=== PATIENT | male | born 1975 | race Caucasian/White ===

== ENCOUNTER 2019-08-09 08:01 | Outpatient (CLI) | payer BC ==
--- NOTE | 2019-08-09 08:50 | CT ---
CT Brain WO Con: 08/09/2019 12:00 AM CLINICAL HISTORY: Headache. COMPARISON: None. FINDINGS: Hemorrhage: None. Ventricular system: Normal in size and morphology for the patient's age. Cerebral parenchyma: Normal Midline shift: None. Mass: No mass effect. Calvarium: Normal. Visualized Paranasal sinuses: Clear. IMPRESSION: No acute intracranial abnormalities.
== END 2019-08-09 08:02 | disposition home or self-care (01) ==
LOC: SCSCT 08:01
PROVIDERS: ATTEND Psychiatry & Neurology Neurology
DX: R51 Headache (principal)
CPT/HCPCS: 70450